=== PATIENT | female | born 1985 | race Caucasian/White ===

== ENCOUNTER 2025-05-26 08:43 | Outpatient (CLI) | payer OTHER, SELFPAY | END 2025-05-26 08:44 | disposition home or self-care (01) | PROVIDERS: PCP Family Medicine; Referring Provider Family Medicine; Visit Provider Family Medicine | DX: Z13.6 Encounter for screening for cardiovascular disorders (principal); R53.83 Other fatigue | CPT/HCPCS: 80053; 80061 ==

== ENCOUNTER 2025-06-04 10:15 | Outpatient (RCR) | payer SELFPAY ==
--- NOTE | 2025-05-25 17:53 | OT.OPOE ---
OT Outpatient Ortho Eval OT Outpatient Ortho Eval* Start: 05/25/25 10:40 Freq: Status: Active Protocol: Document 05/25/25 12:13 LCN (Rec: 05/25/25 17:48 LCN [id number]) E-signed By Enid Adler, OTR/L, CLT OT OP Ortho Eval Details Complexity Complexity Low Insurance Information Insurance Medica Information Outpatient History/Precautions Current Condition/Medical Diagnosis Referring Provider [facility] Diagnoses L wrist pain, tendonitis Treatment Diagnosis L wrist pain, hypermobile joint pattern, edema, weakness Date of Onset 04/28/25 Medical Conditions Depression Other Conditions Migraines 2x/month eye/head pressure, painful, nausea, no visual changes). 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 Still gets a patch of numbness on L side of T9. Did fracture L wrist at age 12, no surgery. Family history of OA in hands/wrist , maternal side. CTS in family history as well. Medical/Functional History Medical History Yes Reviewed Prior Level of Pt lives in [place] with her , 11,9 y/o Function/Mobility daughters (both in softball) and 5 y/o son. 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 Social History Critical Job Demands Pull,Lift,Overhead Reach,Prolonged Standing Hobbies children's activities Fitness strong sport history with gymnastics, softball, swimming. Ortho Subjective Subjective Subjective Arleen Mishra is a 39 y/o female who has been having L sided wrist pain for > 6 months and it's not going away after having a job change to simpler work in February. Intermittent shooting pains in L flexors through to the fingers, comes in waves. Highest level is 7/10 , gets 4-5 x/week. Also having pulling pain in L 1st dorsal compartment of L hand while gripping/lifting, transferring large loads in clawed motion. 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 Unsure if heat or cold is helpful. 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 Pain Assessment Pain Pain Yes Pain Comments 7/10 20% of the timewith shooting pain on volar wrist, aches at TFCC, 3/10 80% of the time. Range of Motion and Strength Wrist Range of Motion and Strength Wrist Range of L scapula wings mod+ during reach behind test. Motion and Strength Pt has B hypermobile joint pattern through elbows, wrist, thumbs, fingers. WR EX to 95 of 70. (pn with overpressure 2/10 at TFCC area.) WR FL to [address] 20 of 14. Ulnar deviation 55 of 40. Supination to 105 of 90. Pronation 90 of 90. MMT is 5/5 for WR EX, pronation. 4-4+/5 for WR FL ( pn 2/10 at WR FL volar wrist), ulnar deviation, supination (3/10 pn similar) and radial deviation is 4/ 5 , tender at TFCC area. No TFCC pain during table top push off test. Used to be able to touch thumbs to radius as a child, no longer able to. Finger MCP hyper extension to -40 ( where -10 -15 is WNL) and ligament laxity of PIP , with 15 degrees hyperextension during table top weightbearing test. TH opposition to proximal palmar crease ( where base of SF is WNL) Hand Pinch/Facing Slitter Strength Hand Pinch/Facing Slitter Strength Hand Pinch/Facing Slitter Left Hand,Right Hand Strength Left Hand Facing Slitter Strength 56 Position 1 in Elbow Flexion (lbs) Facing Slitter Strength 55 Position 2 in Elbow Extension (lbs) Lateral Pinch 14 Strength (lbs) Three Point Pinch ( 15 lbs) Right Hand Facing Slitter Strength 75 Position 1 in Elbow Flexion (lbs) Facing Slitter Strength 80 Position 2 in Elbow Extension (lbs) Lateral Pinch 19 Strength (lbs) Three Point Pinch ( 19 lbs) Comments Comments Painful with 3/10 at 1st dorsal compartment during L garcia pinch. L hand not painful during financial administration officer. Upper Extremity Special Tests Tenosynovitis Wrist Finkl[place]in Negative Right,Positive Left Test Median Nerve-Carpal Tunnel Wrist Phalen Test Negative Left Wrist Tinel Test Negative Left Durkan's Test Negative Left OT Problems Problems Problems Decreased Strength,Pain,Sensory Sensitivity,Lifting, Gripping,Pinching Other Problems Opening Containers,Fasteners,Sleeping Patient Potential Excellent Assessment Assessment Assessment Given Arleen's?difficulty with edema, pain, hypermobile pattern and strength loss of L hand/wrist with scapular instability limiting daily tasks, she would benefit from skilled OT to address these areas. Occupational Therapy Treatment Plan - OP Potential Rehabilitation Excellent Potential Set Goals Goals Set with Yes Patient Goals Goals In 8 weeks, pt will demonstrate:? 1) Decreased pn to <2/10 80% of the time with sustained gripping, carrying groceries, reading books and weeding. 2) I HEP for stretching, gradual strengthening and self mgmt strategies. 3) improved L financial administration officer strength to 60# and pinch to 14# with L thumb/wrist pain < 1/10. 4)??Pt to be fit with functional bracing (for CMC, wrist,) and use adaptive strategies to protect joint integrity to support less pain with ADL. Treatment Plan Treatment Plan Evaluation,Edema Control,Iontophoresis with Dexamethasone Sodium Phosphate 1 mL (4mg per mL),Joint Mobilization,Manual Therapy,Splinting,Ultrasound, Therapeutic Exercise,Therapeutic Activities,Self Care/ Home Management,Education Expected Frequency 1-2x Week Expected Duration 6-8 Weeks Home Program Home Program Home Program Initiated Home Program Ice cup massage 2-3xday. Specifics Certification Certification Statement I Certify That: Therapy Services Provided,Therapy Plan Established, Therapy Plan Reviewed Certification Information Clinic ID # [id number] Initial 05/25/25 Certification Date Recertification Due 08/23/25 Date Provider Signature Yes Required Provider Signature POC & Medical Necessity Shows Agreement With Physician NPI Number Write NPI# Here Physician Comment/ Comment or Changes Change Physician Signature Please Sign/Date Here & Date Requested
== END 2025-10-02 23:59 | disposition home or self-care (01) ==
PROVIDERS: PCP Family Medicine; Visit Provider Family Medicine
DX: M25.532 Pain in left wrist (principal); M77.8 Other enthesopathies, not elsewhere classified; Z51.89 Encounter for other specified aftercare
CPT/HCPCS: 97035; 97140; 97165; 97530